=== PATIENT | female | born 1995 | race Caucasian/White ===

== ENCOUNTER 2019-12-04 16:53 | Inpatient (IN) ==
[2019-12-04] MEDS ORDERED: MEPERIDINE 50 MG/1 ML VIAL IV PRN (17:00)
[2019-12-04] MEDS ORDERED: BUTORPHANOL 2 MG/ML VIAL IV PRN (17:00)
[2019-12-04] MEDS ORDERED: ONDANSETRON 4 MG/2 ML VIAL IV PRN ×2 (17:00→23:30)
[2019-12-04 17:27] LABS: Basophils % 0.3 % (0.0-0.8); Eosinophils # 0.1 10*3/uL (0.0-0.87); Eosinophils % 0.4 % (0.00-10.9); Hematocrit 31.5 VOL% (35.7-47.0); Hemoglobin 9.5 GM/DL (12.0-16.0); Immature Granulocytes % 1.8 %; Immature Granulocytes Absolute 0.25 #; Lymphocytes # 2.9 10*3/uL (1.4-4.0); Lymphocytes % 21.1 % (21.3-54.2); Mean Corpuscular HGB Conc 30.2 GM/DL (32-36); Mean Corpuscular Volume 82.7 FL (87-102); Monocytes % 11.1 % (1.7-12.7); NRBC # 0.02 10*3/uL; Neutrophils % 65.3 % (38.7-73.9); Platelet Count 369 T/CUMM (130-400); Red Blood Count 3.81 MC/CUMM (3.8-5.5); Red Cell Distribution Width 17.1 % (9.3-17.3); White Blood Count 13.6 T/CUMM (4-12)
[2019-12-04] MEDS: LACTATED RINGERS 1,000 ML IV SCH ×2 (18:21→21:30)
[2019-12-04 18:57] LABS: INR 0.9; PT Patient Result 10.1 SECS (9.8-11.9); Partial Thromboplastin Time 23.6 SECS (23.9-33.8)
[2019-12-04] MEDS ORDERED: OXYTOCIN/LR 20 UNIT/1,000 ML BAG IV SCH (19:00)
[2019-12-04] MEDS ORDERED: FAMOTIDINE 20 MG/2 ML VIAL IV ONE (20:36)
[2019-12-04] MEDS ORDERED: hydrOXYzine HCL 25 MG/1 ML VIAL IM PRN (20:36)
[2019-12-04] MEDS ORDERED: NALOXONE 0.4 MG/ML VIAL IV PRN (20:36)
[2019-12-04] MEDS ORDERED: ePHEDrine 50 MG/ML VIAL IV PRN (20:36)
[2019-12-04] MEDS ORDERED: CITRIC ACID/SODIUM CITRATE 30 ML UDCUP PO ONE (20:36)
[2019-12-04] MEDS ORDERED: PROMETHAZINE 25 MG/1 ML VIAL IM ONE (20:36)
[2019-12-04] MEDS ORDERED: ONDANSETRON 4 MG/2 ML VIAL IV ONE (20:36)
[2019-12-04] MEDS ORDERED: diphenhydrAMINE 50 MG/1 ML VIAL IV PRN ×2 (20:36)
[2019-12-04] MEDS ORDERED: fentaNYL 2 MCG/ROPIV 0.2% EPID 100 ML EPIDURAL SCH (21:00)
[2019-12-04] MEDS ORDERED: miSOPROStoL 200 MCG TABLET ONE (22:16)
[2019-12-04] MEDS ORDERED: TRANEXAMIC ACID 1,000 MG/10 ML VIAL ONE (22:16)
[2019-12-04] MEDS ORDERED: METHYLERGONOVINE 0.2 MG/1 ML AMP ONE (22:16)
[2019-12-04] MEDS ORDERED: CARBOPROST TROMETHAMINE 250 MCG/ML AMP IM ONE (22:17)
[2019-12-04] MEDS ORDERED: WITCH HAZEL PADS 100/JAR TOP PRN (23:30)
[2019-12-04] MEDS ORDERED: ACETAMINOPHEN 325 MG TABLET PO PRN (23:30)
[2019-12-04] MEDS ORDERED: OXYTOCIN/LR 20 UNIT/1,000 ML BAG IV ONE (23:30)
[2019-12-04] MEDS ORDERED: IBUPROFEN 800 MG TABLET PO PRN (23:30)
[2019-12-04] MEDS ORDERED: DIPH/TET/ACEL PERT BOOSTER VACCINE 0.5 ML VIAL IM ONE (23:30)
[2019-12-04] MEDS ORDERED: RHO(D) IMMUNE GLOBULIN 300 MCG SYRINGE IM ONE (23:30)
[2019-12-04] MEDS ORDERED: MEASLES/MUMPS/RUBELLA VACCINE 0.5 ML VIAL SUBCUT ONE (23:30)
[2019-12-04] MEDS ORDERED: LANOLIN 50% CREAM 0.3 OZ TUBE TOP PRN (23:30)
[2019-12-04] MEDS ORDERED: BENZOCAINE 20%/MENTHOL 0.5% SPRAY 56 GM CAN TOP PRN (23:30)
[2019-12-04] MEDS ORDERED: oxyCODONE/ACETAMINOPHEN 5-325 MG TABLET PO PRN (23:30)
[2019-12-04] MEDS ORDERED: BISACODYL 10 MG SUPP RECTAL PRN (23:30)
[2019-12-04] MEDS ORDERED: HYDROCORTISONE 2.5% RECTAL CREAM 30 GM TUBE TOP PRN (23:30)
[2019-12-05 00:04] LABS: Cord Arterial Blood HCO3 21.4 MMOL/L
[2019-12-05 00:05] LABS: Cord Venous Blood HCO3 22.8 MMOL/L; Cord Venous Blood PCO2 36.3 MMHG; Cord Venous Blood PO2 36.2 MMHG
[2019-12-05 06:04] LABS: Basophils # 0.1 10*3/uL (0.0-0.2); Basophils % 0.3 % (0.0-0.8); Eosinophils % 0.2 % (0.00-10.9); Hematocrit 28.5 VOL% (35.7-47.0); Hemoglobin 8.6 GM/DL (12.0-16.0); Immature Granulocytes Absolute 0.17 #; Lymphocytes # 2.8 10*3/uL (1.4-4.0); Lymphocytes % 15.8 % (21.3-54.2); Mean Corpuscular HGB Conc 30.2 GM/DL (32-36); Mean Corpuscular Volume 84.3 FL (87-102); Mean Platelet Volume 10.4 FL (9.6-12.0); Monocytes % 10.6 % (1.7-12.7); Neutrophils % 72.1 % (38.7-73.9); Platelet Count 284 T/CUMM (130-400); Red Blood Count 3.38 MC/CUMM (3.8-5.5); Red Cell Distribution Width 17.1 % (9.3-17.3); White Blood Count 17.6 T/CUMM (4-12)
[2019-12-05] MEDS: oxyCODONE/ACETAMINOPHEN 5-325 MG TABLET PO PRN ×2 (07:20→21:02)
[2019-12-05] MEDS: DOCUSATE SODIUM 100 MG CAPSULE PO SCH ×2 (09:16→21:01)
[2019-12-05] MEDS: lamoTRIgine 100 MG TABLET PO SCH ×2 (21:01→21:59)
[2019-12-06] MEDS: LAMOTRIGINE PO SCH ×4 (06:21→09:46)
[2019-12-06] MEDS: oxyCODONE/ACETAMINOPHEN 5-325 MG TABLET PO PRN (06:21)
[2019-12-06 08:34] VITALS: BP 116/72
[2019-12-06] MEDS: DOCUSATE SODIUM 100 MG CAPSULE PO SCH (09:20)
[2019-12-06] MEDS ORDERED: LAMOTRIGINE PO SCH (21:00)
== END 2019-12-06 11:45 | disposition home or self-care (01) | DRG 806 ==
LOC: N.LDOUT 16:53 → N.LD 16:55 → N.OB 12-05 15:51
PROVIDERS: ADMIT Obstetrics & Gynecology; ATTEND Obstetrics & Gynecology